=== PATIENT | female | born 2005 | race Caucasian/White ===

== ENCOUNTER → 2024-11-24 | Outpatient (REF) | payer OTHER | LOC: M PLALAB 15:04 | PROVIDERS: ATTEND Advanced Practice Midwife | DX: Z34.01 Encounter for supervision of normal first pregnancy, first trimester (principal) ==

== ENCOUNTER → 2024-12-26 | Outpatient (CLI) | payer OTHER ==
[2024-12-26 17:22] LABS: HEMATOCRIT 33.7 % (36.0-47.0); HEMOGLOBIN 11.8 g/dl (12.0-15.5); MEAN CORPUSCULAR HEMOGLOBIN 26.5 pg (27.0-33.0); MEAN CORPUSCULAR VOLUME 75.6 fl (80.0-96.0); PLATELET COUNT, AUTOMATED 299 10^3/uL (150-450); RED BLOOD COUNT 4.46 10^6/uL (4.00-5.40); WHITE BLOOD COUNT 11.4 10^3/uL (4.0-10.0)
[2024-12-26 18:08] LABS: Trichomonas vaginalis (AMP) NOT DETECTED (NEGATIVE)
[2024-12-26 18:23] LABS: HIV 1&2 SCREEN NEGATIVE (NEGATIVE)
[2024-12-26 18:31] LABS: HEPATITIS C VIRUS ABY INDEX 0.06 INDEX (<0.8)
[2024-12-26 18:33] LABS: GC DNA AMPLIFICATION NEGATIVE (NEGATIVE)
== END ==
LOC: M PLALAB 15:13
PROVIDERS: ATTEND Advanced Practice Midwife
DX: Z34.01 Encounter for supervision of normal first pregnancy, first trimester (principal); Z3A.00 Weeks of gestation of pregnancy not specified

== ENCOUNTER → 2025-02-17 | Outpatient (CLI) | payer OTHER | LOC: M WHC 13:38 | PROVIDERS: ATTEND Advanced Practice Midwife | DX: Z34.01 Encounter for supervision of normal first pregnancy, first trimester (principal); Z3A.20 20 weeks gestation of pregnancy ==

== ENCOUNTER → 2025-04-07 | Outpatient (CLI) | payer OTHER ==
[2025-04-07 15:28] LABS: PLATELET COUNT, AUTOMATED 284 10^3/uL (150-450)
[2025-04-07 15:29] LABS: GLUCOSE CHALLENGE TEST 1 HOUR 101 MG/DL (LESS THAN 140)
[2025-04-07 15:58] LABS: HIV 1&2 SCREEN NEGATIVE (NEGATIVE)
[2025-04-07 16:06] LABS: HEPATITIS C VIRUS ABY INDEX < 0.02 INDEX (<0.8)
[2025-04-07 16:28] LABS: Trichomonas vaginalis (AMP) NOT DETECTED (NEGATIVE)
[2025-04-07 16:52] LABS: GC DNA AMPLIFICATION NEGATIVE (NEGATIVE)
== END ==
LOC: M PLALAB 11:33
PROVIDERS: ATTEND Obstetrics & Gynecology
DX: Z33.1 Pregnant state, incidental (principal)

== ENCOUNTER → 2025-05-14 | Outpatient (REF) | payer OTHER | LOC: M PLALAB 09:54 | PROVIDERS: ATTEND Student in an Organized Health Care Education/Training Program | DX: Z34.83 Encounter for supervision of other normal pregnancy, third trimester (principal); Z3A.34 34 weeks gestation of pregnancy ==

== ENCOUNTER 2025-06-07 10:39 | Emergency (ER) | payer OTHER ==
[~2025-06-07] VITALS: Ht 162.6 cm; Wt 88.8 kg
[2025-06-07] MEDS ORDERED: MULTTAB20 PO (10:47)
[2025-06-07 13:08] VITALS: BP 121/63; TEMP 98.2; O2SAT 98
== END 2025-06-07 13:09 | disposition home or self-care (01) ==
LOC: M ED 10:39
DX: J02.8 Acute pharyngitis due to other specified organisms (principal)

== ENCOUNTER → 2025-06-11 | Outpatient (REF) | payer OTHER ==
[~2025-06-11] MED LIST: MULTTAB20 PO
== END ==
LOC: M SFHCWAGY 17:17
PROVIDERS: ATTEND Advanced Practice Midwife
DX: Z36.85 Encounter for antenatal screening for Streptococcus B (principal); Z3A.36 36 weeks gestation of pregnancy

== ENCOUNTER 2025-07-02 06:23 | Inpatient (IN) | payer OTHER ==
[2025-07-02] VITALS (17 sets, daily range): BP systolic 102–146; BP diastolic 56–77; O2SAT 97–99
[~2025-07-02] VITALS: Ht 165.1 cm; Wt 91.2 kg
[2025-07-02] MEDS ORDERED: TRANEXAMIC ACID INJection 1,000 MG in NS 100 ML IV PRN (07:25)
[2025-07-02] MEDS ORDERED: METHYLERGONOVINE MALEATE 0.2 MG/ML 1 ML VIAL IM PRN (07:25)
[2025-07-02] MEDS ORDERED: OXYTOCIN DRIP 30 UNITS in IV 1 EA IV PRN (07:25)
[2025-07-02] MEDS ORDERED: OXYTOCIN INJ 10UNITS/ML 1ML VIAL IM PRN (07:25)
[2025-07-02] MEDS ORDERED: LIDOCAINE 1% MDV 20 ML VIAL INFIL PRN (07:25)
[2025-07-02] MEDS ORDERED: CARBOPROST TROMETHAMINE 250 MCG/ML AMP IM PRN (07:25)
[2025-07-02 08:30] LABS: PLATELET COUNT, AUTOMATED 225 10^3/uL (150-450)
[2025-07-02] MEDS ORDERED: NALOXONE INJ 0.4 MG/1 ML VIAL IV PRN (09:00)
[2025-07-02] MEDS ORDERED: diphenhydrAMINE 50 MG/ML VIAL IV PRN (09:00)
[2025-07-02] MEDS ORDERED: ONDANSETRON 4MG/2ML VIAL IV PRN (09:00)
[2025-07-02] MEDS ORDERED: EPIDURAL/PCA KEYS XX PRN (09:00)
[2025-07-02] MEDS ORDERED: LR 500 ML IV PRN (09:00)
[2025-07-02] MEDS: LR 1,000 ML IV SCH (09:05)
[2025-07-02] MEDS: FENTANYL/ROPIVACAINE/NACL BAG 100 ML EPIDURAL SCH (09:10)
[2025-07-02 09:28] LABS: HIV 1&2 SCREEN NEGATIVE (NEGATIVE)
[2025-07-02 09:36] LABS: HEPATITIS C VIRUS ABY INDEX < 0.02 INDEX (<0.8)
[2025-07-02] MEDS: OXYTOCIN DRIP 30 UNITS in IV 1 EA IV PRN (14:00)
[2025-07-02 14:04] LABS: CORD GAS ABE A -6.7; CORD GAS ABE V -3.7; CORD GAS HCO3 A 19.5 MMOL/L; CORD GAS HCO3 V 22.4 MMOL/L; CORD GAS O2 SAT A 90.4 %; CORD GAS O2 SAT V 61.8 %; CORD GAS PCO2 A 41.2 mmHg; CORD GAS PCO2 V 44.2 mmHg; CORD GAS PH A 7.292 UNITS; CORD GAS PH V 7.322 UNITS; CORD GAS PO2 A 52.7 mmHg; CORD GAS PO2 V 26.3 mmHg; CORD GAS SBC A 18.9 MMOL/L; CORD GAS SBC V 20.5 MMOL/L; CORD GAS TCO2 A 20.7 MMOL/L; CORD GAS TCO2 V 23.7 MMOL/L
[2025-07-02] MEDS ORDERED: RHOGAM 300MCG (1500IU) INJ IM SCH (14:30)
[2025-07-02] MEDS ORDERED: ACETAMINOPHEN 325 MG TAB PO PRN (14:30)
[2025-07-02] MEDS ORDERED: ANUSOL HC CREAM 30 GM TOP PRN (14:30)
[2025-07-02] MEDS ORDERED: MOM 30 ML SUSPENSION UDC PO PRN (14:30)
[2025-07-02] MEDS: ACETAMINOPHEN 500 MG TAB PO PRN (16:57)
[2025-07-02] MEDS ORDERED: HOME MED LIST COMPLETE! XX SCH (17:45)
[2025-07-02] MEDS ORDERED: ACET-683 PO (18:10)
[2025-07-02] MEDS ORDERED: IBUP80TA PO (18:10)
[2025-07-02] MEDS ORDERED: IBUPROFEN 800 MG TAB PO PRN (20:10)
[2025-07-02] MEDS: IBUPROFEN 800 MG TAB PO SCH (20:55)
[2025-07-02] MEDS: DIBUCAINE 1% OINTMENT 30 GM TOP PRN (20:55)
[2025-07-03 05:58] VITALS: BP 113/74; O2SAT 99
[2025-07-03] MEDS: PRENATAL VITAMINS CHEWABLE TABLET PO SCH (08:34)
[2025-07-03 18:30] VITALS: BP 129/80; O2SAT 98
[2025-07-04 06:00] VITALS: BP 130/85; O2SAT 98
[2025-07-04] MEDS ORDERED: MEASLES,MUMPS,RUBELLA VACCINE INJ (MMR-II) SC.IMMUN ONE (09:00)
[2025-07-04] MEDS: DOCUSATE SODIUM 100 MG CAPSULE PO PRN (09:18)
== END 2025-07-04 13:40 | disposition home or self-care (01) | DRG 807 ==
LOC: M LDO 06:23 → M LDI 07:19 → M OBS 16:32
PROVIDERS: ADMIT Obstetrics & Gynecology; ATTEND Advanced Practice Midwife
PROC: 10E0XZZ Delivery of Products of Conception, External Approach (ICD-10-PCS; principal; 2025-07-02)
DX: O99.334 Smoking (tobacco) complicating childbirth (principal); Z37.0 Single live birth; Z3A.39 39 weeks gestation of pregnancy; F17.290 Nicotine dependence, other tobacco product, uncomplicated; O70.0 First degree perineal laceration during delivery